=== PATIENT | female | born 1925 | race Caucasian/White ===

== ENCOUNTER 2016-11-02 14:29 | Inpatient (IN) | payer MEDICARE, BC ==
[~2016-11-02] VITALS: Ht 157.5 cm; Wt 114.8 kg
[~2016-11-02 14:29] MED LIST: ACET-868 PO; ASCO500C16 PO; ASPI-991 PO; CALA177S TP; CARV12.5 PO; CLOB15OI17 TP; CLOT15CR5 TP; CRAN237L PO; DOCU-270 PO; LACT1CAP72 PO; LEVO88TA PO; LORA10TA7 PO; MAG30ORA PO; MUPI22OI7; OLAN5TAB6 PO; SODI45SP6 NS; ZOLP5TAB7 PO
[2016-11-02 15:31] LABS: BASOPHILS # (AUTO) 0.1 /CMM (0.0-0.2); EOSINOPHILS # (AUTO) 0.3 /CMM (0.0-0.7); HEMOGLOBIN 15.3 g/dL (11.5-14.8); MEAN CORPUSCULAR HEMOGLOBIN 30 PG (26.0-33.0); MONOCYTES # (AUTO) 0.5 /CMM (0.1-1.30); NEUTROPHILS # (AUTO) 2.5 /CMM (1.8-8.9); RDW COEFFICIENT OF VARIATION 14.4 (11.5-15.0)
[2016-11-02 15:33] LABS: BASOPHILS % (AUTO) 1.3 % (0.0-2.0); HEMATOCRIT 46 % (33-45); LYMPHOCYTES % (AUTO) 48.3 % (20.0-44.0); MEAN CORPUSCULAR HGB CONC 34 g/dl (31.0-36.0); MEAN CORPUSCULAR VOLUME 90 fL (82-100); NEUTROPHILS % (AUTO) 38.4 % (43.0-81.0); PLATELET COUNT (AUTO) 240 /CMM (150-450); RED BLOOD CELL COUNT(AUTO) 5.06 MIL/uL (4.0-5.2); WHITE BLOOD COUNT (AUTO) 6.4 K/uL (4.3-11.0)
[2016-11-02 15:38] LABS: CALCIUM, SERUM 8.9 mg/dL (8.5-10.1); CARBON DIOXIDE 25 mmol/L (21-32); CHLORIDE 106 mmol/L (98-107); CREATININE 1.3 mg/dL (0.6-1.3); GLUCOSE 110 mg/dL (74-106); POTASSIUM 5.4 mmol/L (3.5-5.1); SODIUM SERUM 137 mmol/L (136-145); UREA NITROGEN, BLOOD 23 mg/dL (7-18)
--- NOTE | 2016-11-02 16:42 | NUR ---
REPORT GIVEN TO BECK MESSER IN CHARGE; WILL BE ADMITTED UNDER THE SERVICE OF DR. MARTIN AND DR. BRICENO.
[2016-11-02] MEDS ORDERED: SIMV20TA6 PO (17:20)
[2016-11-02] MEDS ORDERED: LACT1CAP89 PO (17:20)
[2016-11-02] MEDS ORDERED: LEVO100T9 PO (17:20)
[2016-11-02] MEDS ORDERED: MAG HYDROX/AL HYDROX/SIMETH 30 ML UDC PO PRN (18:00)
[2016-11-02] MEDS ORDERED: LORAZEPAM 0.5 MG TABLET PO PRN (18:00)
[2016-11-02] MEDS ORDERED: SODIUM POLYSTYRENE SULFONATE 15 G/60 ML BOTTLE PO ONE (18:00)
[2016-11-02] MEDS ORDERED: MAGNESIUM HYDROXIDE 30 ML UDC PO PRN (18:00)
[2016-11-02] MEDS ORDERED: SALINE NASAL SPRAY 0.65% 1 BOTTLE BOTTLE NS PRN (18:00)
[2016-11-02] MEDS ORDERED: ZOLPIDEM TARTRATE 5 MG TABLET PO PRN (18:00)
[2016-11-02] MEDS ORDERED: ACETAMINOPHEN 325 MG TABLET PO PRN ×2 (18:00)
[2016-11-02] MEDS ORDERED: DOCUSATE SODIUM 100 MG CAPSULE PO PRN (18:00)
--- NOTE | 2016-11-02 18:18 | NUR ---
RN-CO: Made a follow up on the Kayexalete 30 mg. Pharmacist said they will bring it in.
[2016-11-02 19:30] VITALS: BP 150/79
--- NOTE | 2016-11-02 19:30 | NUR ---
GPS ADMISSION NOTE, RECEIVED PATIENT FROM [facility]. PATIENT ARRIVED ON THIS UNIT AT 1800 [facility] BED WITH 1 EMERGENCY MEDICAL SERVICES COORDINATOR ESCORT. PATIENT ADMITTED ON VOLUNTARY STATUS. PATIENT STATES, " I HAVE JUST BEEN REALLY DEPRESSED BECAUSE I CAN'T WALK ANYMORE AND DR EVANS SAID I SHOULD BE EVALUATED ". UPON FACE TO FACE ASSESSMENT PATIENT IS CURRENTLY LYING IN BED AWAKE, HAS NO S/S OR COMPLAINTS OF PAIN. PATIENT IS DISPLAYING NO S/S OF APPARENT DISTRESS. PATIENT BREATHING IS UNLABORED WITH EQUAL RISE AND FALL OF THE CHEST. PATIENT IS ALERT AND ORIENTATED X 4 ON ROOM AIR. PATIENT ASSISTED WITH TURING AND REPOSITIONING Q2HR AND PRN FOR COMFORT AND CIRCULATION. PATIENT HAS NO NEEDS AT THIS TIME. PATIENT IS NOTED TO BEING DEPRESSED, DISHEVELED, DISORGANIZED, COOPERATIVE, AND NEEDS LITTLE REDIRECTION. PATIENT DENIES SUICIDE IDEATIONS AND HOMICIDAL IDEATIONS AT THIS TIME. PATIENT IS UNDER THE PSYCHIATRIC CARE OF DR. MARTIN AND THE MEDICAL CARE OF DR JANAK COKER. PATIENT BELONGINGS WERE INVENTORIED AND CHECKED FOR CONTRABAND. ALL CONTRABAND REMOVED AND STORED IN PATIENT HALLWAY LOCKER. PATIENT ADVANCED DIRECTIVES PREFERENCE, IMMUNIZATIONS QUESTIONER, NECESSARY PAPERWORK, SKIN ASSESSMENT COMPLETED, AND SIGNED. PATIENT ORIENTATED TO ROOM, FLOOR, AND STAFF WITH ALL QUESTIONS ANSWERED. PATIENT EDUCATED ON THE USE OF THE CALL ADAM. PATIENT BED SIDE RAILS ARE UP X 2 FOR SAFETY. PATIENT BED IS LOCKED, LOW, AND I WILL CONTINUE TO MONITOR THIS PATIENT Q 15 MIN WITH THE HELP OF STAFF TO MAINTAIN SAFETY.
[2016-11-02 21:00] VITALS: BP 150/79
[2016-11-02] MEDS: SIMVASTATIN 20 MG TABLET PO SCH (21:41)
[2016-11-02] MEDS: CARVEDILOL 12.5 MG TABLET PO SCH (21:41)
[2016-11-03] MEDS ORDERED: Z GUARD REMEDY 4 OZ OINT TP PRN (04:00)
[2016-11-03] MEDS: LEVOTHYROXINE SODIUM 100 MCG TABLET PO SCH (06:43)
[2016-11-03 07:33] LABS: CHOLESTEROL 159 mg/dL (<200); HDL CHOLESTEROL 40 mg/dL (40-60); LDL 91 mg/dL (0-99); TRIGLYCERIDES 142 mg/dL (30-150)
[2016-11-03 07:37] LABS: ALANINE AMINOTRANSFERASE 43 U/L (12-78); ALBUMIN 3.1 g/dL (3.4-5.0); ALKALINE PHOSPHATASE 79 U/L (46-116); ASPARTATE AMINOTRANSFERASE 29 U/L (15-37); CALCIUM, SERUM 8.7 mg/dL (8.5-10.1); CARBON DIOXIDE 27 mmol/L (21-32); CHLORIDE 105 mmol/L (98-107); CREATININE 1.1 mg/dL (0.6-1.3); GLUCOSE 101 mg/dL (74-106); POTASSIUM 3.4 mmol/L (3.5-5.1); SODIUM SERUM 142 mmol/L (136-145); TOTAL PROTEIN, SERUM 6.6 g/dL (6.4-8.2); UREA NITROGEN, BLOOD 20 mg/dL (7-18)
--- NOTE | 2016-11-03 07:40 | NUR ---
received pt. alert and oriented x4,cooperative,pleasant.vs stable.
[2016-11-03 08:00] VITALS: BP 134/67
[2016-11-03] MEDS: CARVEDILOL 12.5 MG TABLET PO SCH ×2 (10:55→21:25)
[2016-11-03] MEDS: ASPIRIN EC 81 MG TABLET.DR PO SCH (10:55)
--- NOTE | 2016-11-03 12:00 | NUR ---
radiology called regarding duplex study lower extremities.
[2016-11-03] MEDS ORDERED: POTASSIUM CHLORIDE 20 MEQ TAB.PRT.SR PO SCH (12:30)
[2016-11-03] MEDS: ESCITALOPRAM OXALATE (10 MG) 10 MG TABLET PO SCH (13:03)
--- NOTE | 2016-11-03 15:30 | NUR ---
obtained ua and urine culture by straight cath.pt. tolerated well.
[2016-11-03 16:00] VITALS: BP 125/64
[2016-11-03 16:23] LABS: APPEARANCE,URINE SL CLOUDY (CLEAR); BILIRUBIN,URINE NEGATIVE (NEGATIVE); BLOOD, URINE 1+ Ery/uL (NEGATIVE); COLOR,URINE YELLOW (YELLOW); KETONES,URINE NEGATIVE (NEGATIVE); LEUKOCYTE ESTERASE ,URINE 3+ (NEGATIVE); NITRITE, URINE POSITIVE (NEGATIVE); PROTEIN,URINE NEGATIVE (NEGATIVE); UGLUCOSE NEGATIVE (NEGATIVE); UROBILINOGEN,URINE 0.2 EU/dL (0.2)
[2016-11-03 16:42] LABS: BACTERIA,URINE Many /HPF (None Seen); SQUAMOUS EPITHELIAL CELL,UR Few /HPF (None Seen); WBC,URINE 21-50 /HPF (0-3)
--- NOTE | 2016-11-03 18:00 | NUR ---
awaiting results of duplex on legs-tech to do study today.
[2016-11-03 20:26] VITALS: BP 110/62
[2016-11-03] MEDS: SIMVASTATIN 20 MG TABLET PO SCH (21:25)
--- NOTE | 2016-11-03 22:30 | NUR ---
DR. MAN HERE WITH VERBAL NEW ORDERS GIVEN BMP FOR AM LABS FOR 11/04/16, NEW ORDERS RECEIVED AND CARRIED OUT.
--- NOTE | 2016-11-03 23:10 | NUR ---
DONOVAN GARCIA HERE IN UNIT. NOTIFIED DR. MAN ABOUT PT. URINE RBC-3.5, WBC-2150 , DR. MAN STATED I WILL LOOK AT THE PT. CHART
--- NOTE | 2016-11-04 06:08 | NUR ---
AT 0608 / CALLED DR. SHANNA PAYNE REGARDING ABOUT CONSULT, AND LEFT MESSAGE AT THIS PH# [phone] ENDORSE TO NEXT SHIFT FOR FOLLOW UP .
[2016-11-04 07:15] LABS: CALCIUM, SERUM 8.6 mg/dL (8.5-10.1); CARBON DIOXIDE 28 mmol/L (21-32); CHLORIDE 106 mmol/L (98-107); GLUCOSE 94 mg/dL (74-106); POTASSIUM 3.5 mmol/L (3.5-5.1); SODIUM SERUM 142 mmol/L (136-145); UREA NITROGEN, BLOOD 20 mg/dL (7-18)
[2016-11-04 08:08] VITALS: BP 137/71
[2016-11-04] MEDS: LEVOTHYROXINE SODIUM 100 MCG TABLET PO SCH (08:11)
[2016-11-04] MEDS: CARVEDILOL 12.5 MG TABLET PO SCH ×2 (08:11→22:02)
[2016-11-04] MEDS: ASPIRIN EC 81 MG TABLET.DR PO SCH (08:12)
[2016-11-04] MEDS: ESCITALOPRAM OXALATE (10 MG) 10 MG TABLET PO SCH (08:12)
[2016-11-04] MEDS: SULFAMETH/TRIMETH 800/160 MG 1 UDTAB TABLET PO SCH ×2 (08:39→22:02)
[2016-11-04 15:41] VITALS: BP 127/67
--- NOTE | 2016-11-04 15:51 | NUR ---
Initial discharge plan: Pt. is a resident at [address] [place] [address] and wants to return. SW will follow up with facility and if accepted back pt. can return. SW will help form safe and proper discharge. SW will follow up with family.
[2016-11-04 20:00] VITALS: BP 122/67
[2016-11-04] MEDS: Z GUARD REMEDY 2 OZ OINT TP SCH (21:00)
[2016-11-04] MEDS: SIMVASTATIN 20 MG TABLET PO SCH (22:03)
--- NOTE | 2016-11-05 06:13 | NUR ---
GPS/RN PATIENT AWAKE, ALERT, ORIENTED, NO BEHAVIOR PROBLEM OVERNIGHT. ALL NEEDS ATTENDED AT THIS TIME. WILL CONTINUE TO MONITOR.
[2016-11-05 08:13] VITALS: BP 131/61
[2016-11-05] MEDS: ASPIRIN EC 81 MG TABLET.DR PO SCH (09:22)
[2016-11-05] MEDS: LEVOTHYROXINE SODIUM 100 MCG TABLET PO SCH (09:22)
[2016-11-05] MEDS: CARVEDILOL 12.5 MG TABLET PO SCH ×2 (09:22→21:00)
[2016-11-05] MEDS: SULFAMETH/TRIMETH 800/160 MG 1 UDTAB TABLET PO SCH ×2 (09:22→21:14)
[2016-11-05] MEDS: ESCITALOPRAM OXALATE (10 MG) 10 MG TABLET PO SCH (09:22)
[2016-11-05] MEDS: Z GUARD REMEDY 2 OZ OINT TP SCH ×2 (09:29→21:00)
--- NOTE | 2016-11-05 14:34 | NUR ---
SW spoke with Tanner from [facility] [address], [place] [address] and pt is able to readmit after discharge.
[2016-11-05 15:30] VITALS: BP 132/66
[2016-11-05 20:00] VITALS: BP 118/60
--- NOTE | 2016-11-05 20:03 | NUR ---
RN NOTES RECEIVED PX AWAKE AND IN BED, NO S/SX OR COMPLAINTS OF PAIN AT THIS TIME. PX IS DISPLAYING NO S/SX OF APPARENT DISTRESS AT THIS TIME. PATIENT BREATHING IS UNLABORED WITH EQUAL RISE AND FALL OF THE CHEST. PATIENT IS ALERT AND ORIENTED X 4, ON ROOM AIR WITH SPO2 98%. PATIENT IS MED COMPLIANT. PATIENT DENIES SUICIDE IDEATIONS OR HOMICIDAL IDEATIONS AT THIS TIME. PATIENT ASSISTED WITH TURNING AND REPOSITIONING Q2 HR AND PRN FOR COMFORT AND CIRCULATION. PATIENT HAS NO NEEDS AT THIS TIME. PATIENT EDUCATED ON THE USE OF THE CALL ADAM. PATIENT BED SIDE RAILS UP X 2 FOR SAFETY, BED IS LOCKED AND LOW AND WILL CONTINUE TO MONITOR AND MAINTAIN SAFETY.
[2016-11-05] MEDS: SIMVASTATIN 20 MG TABLET PO SCH (21:13)
[2016-11-05] MEDS ORDERED: LEVOFLOXACIN (750 MG) 750 MG TABLET ONE (23:06)
[2016-11-05] MEDS: LEVOFLOXACIN (750 MG) 750 MG TABLET PO SCH (23:10)
--- NOTE | 2016-11-06 | NUR ---
RN NOTES DENIED PAIN, SOB, N/V; REFUSED SLEEPING PILL; DENIED DEPRESSION OR ANXIETY; CALLED DR. MAN AND MADE HIM AWARE OF URINE C/S RESULT,NEW ORDER MADE, SWITCHED BACTRIM TO LEVAQUIN, LEVAQUIN GIVEN TO PX PO.
--- NOTE | 2016-11-06 06:49 | NUR ---
RN NOTES TRANSFERRED PX TO ROOM 216-1, ON CONTACT ISOLATION; EARLY AM CARE RENDERED, CHANGED DIAPER, NO NEW SKIN CHANGES; DENIED PAIN, SOB, N/V; CALL ADAM WITHIN REACH; WILL ENDORSE TO NEXT RN.
[2016-11-06] MEDS: LEVOTHYROXINE SODIUM 100 MCG TABLET PO SCH (07:54)
[2016-11-06 08:00] VITALS: BP 144/73
[2016-11-06] MEDS: ESCITALOPRAM OXALATE (10 MG) 10 MG TABLET PO SCH (09:12)
[2016-11-06] MEDS: ASPIRIN EC 81 MG TABLET.DR PO SCH (09:12)
[2016-11-06] MEDS: CARVEDILOL 12.5 MG TABLET PO SCH ×2 (09:14→21:00)
[2016-11-06] MEDS: Z GUARD REMEDY 2 OZ OINT TP SCH ×2 (09:16→20:39)
[2016-11-06 15:58] VITALS: BP 119/67
[2016-11-06 20:00] VITALS: BP 118/63
[2016-11-06 20:45] VITALS: BP 118/67
[2016-11-06] MEDS: SIMVASTATIN 20 MG TABLET PO SCH (21:08)
--- NOTE | 2016-11-06 21:09 | NUR ---
AT 2100 PT. REFUSED CARVEDILOL 12.5, BP 118/67 , PULSE 68
[2016-11-06] MEDS: LEVOFLOXACIN (750 MG) 750 MG TABLET PO SCH (22:44)
[2016-11-07] MEDS: LEVOTHYROXINE SODIUM 100 MCG TABLET PO SCH (07:45)
[2016-11-07 08:09] VITALS: BP 135/90
[2016-11-07] MEDS: CARVEDILOL 12.5 MG TABLET PO SCH ×2 (08:57→21:00)
[2016-11-07] MEDS: ESCITALOPRAM OXALATE (10 MG) 10 MG TABLET PO SCH (08:57)
[2016-11-07] MEDS: ASPIRIN EC 81 MG TABLET.DR PO SCH (08:58)
[2016-11-07] MEDS: Z GUARD REMEDY 2 OZ OINT TP SCH ×2 (09:07→21:52)
[2016-11-07 16:00] VITALS: BP 124/74
[2016-11-07 20:00] VITALS: BP 128/74
--- NOTE | 2016-11-07 20:00 | NUR ---
RN INITIAL NOTE; PT ON THE BED RESTING WITHOUT ANY DISTRESS . ALERT/ ORIENTED X 4 , BREATHING EVEN AND UNLABORED . DENIED ANY PAIN AT THIS TIME. BED IN THE LOWEST/LOCKED POSITION . SAFETY MEASURES APPLIED. WILL TURN AND REPOSITION , WILL CONTINUE TO MONITOR .
[2016-11-07 20:19] VITALS: BP 128/74
[2016-11-07] MEDS: SIMVASTATIN 20 MG TABLET PO SCH (21:45)
[2016-11-07] MEDS: LEVOFLOXACIN (750 MG) 750 MG TABLET PO SCH (22:47)
--- NOTE | 2016-11-08 06:58 | NUR ---
RN EOS NOTE; NO ANY CHANGE OF CONDITION NOTED DURING THE SHIFT . WILL ENDORSE THE NEXT SHIFT RN FOR CONTINUITY OF CARE .
[2016-11-08 08:00] VITALS: BP 140/63
[2016-11-08] MEDS: LEVOTHYROXINE SODIUM 100 MCG TABLET PO SCH ×2 (08:22→08:25)
[2016-11-08] MEDS: CARVEDILOL 12.5 MG TABLET PO SCH ×2 (08:22→21:46)
[2016-11-08] MEDS: ASPIRIN EC 81 MG TABLET.DR PO SCH (08:22)
[2016-11-08] MEDS: ESCITALOPRAM OXALATE (10 MG) 10 MG TABLET PO SCH (08:22)
[2016-11-08] MEDS: Z GUARD REMEDY 2 OZ OINT TP SCH ×2 (08:23→21:48)
[2016-11-08 09:00] VITALS: BP 140/63
[2016-11-08 16:00] VITALS: BP 136/63
[2016-11-08 20:00] VITALS: BP 128/67
[2016-11-08] MEDS: SIMVASTATIN 20 MG TABLET PO SCH (21:45)
[2016-11-08] MEDS: LEVOFLOXACIN (750 MG) 750 MG TABLET PO SCH (23:24)
[2016-11-09] MEDS: LEVOTHYROXINE SODIUM 100 MCG TABLET PO SCH (07:30)
[2016-11-09 08:00] VITALS: BP 143/71
[2016-11-09] MEDS: ESCITALOPRAM OXALATE (10 MG) 10 MG TABLET PO SCH (09:09)
[2016-11-09] MEDS: ASPIRIN EC 81 MG TABLET.DR PO SCH (09:09)
[2016-11-09 09:10] VITALS: BP 143/71
[2016-11-09] MEDS: CARVEDILOL 12.5 MG TABLET PO SCH (09:10)
[2016-11-09] MEDS: Z GUARD REMEDY 2 OZ OINT TP SCH (09:16)
--- NOTE | 2016-11-09 13:30 | NUR ---
CAREERS ADVISER NOTE:PATIENT ALERT ,VERBALLY RESPONSIVE ,DENIES SI/HI/AVH.PATIENT SEEN BY WITH DISCHARGE ORDERS ,ALL ORDERS CARRIED OUT .. CALLED BACK WITH DISCHARGE ORDERS ALL ORDERS CARRIED OUT.ALL BELONGINGS RETURNED TO PATIENT .VS STABLE .REPORT GIVEN TO NURSE IN [facility] .PATIENT REFUSED DISCHARGE PHOTOS .PATIENT DISCHARGE WITH AMBULANCE.
--- NOTE | 2016-11-09 16:05 | NUR ---
Discharge note: discharged back to [facility] [address], [place], [place] [id number] via [facility]. Pt. was calm and cooperative and agreed with the discharge plan. Denied suicidal/homicidal ideations. Discharge information was provided to the accepting facility and discharge paperwork has been signed.
== END 2016-11-09 15:01 | DRG 881 ==
LOC: ER 14:31 → GPS 16:53
PROVIDERS: ADMIT Psychiatry & Neurology Psychiatry; ATTEND Psychiatry & Neurology Psychiatry
DX: F32.9 Major depressive disorder, single episode, unspecified (principal); N39.0 Urinary tract infection, site not specified; Z68.42 Body mass index [BMI] 45.0-49.9, adult; E03.9 Hypothyroidism, unspecified; E86.0 Dehydration; E78.5 Hyperlipidemia, unspecified; E66.01 Morbid (severe) obesity due to excess calories; K21.9 Gastro-esophageal reflux disease without esophagitis; K59.00 Constipation, unspecified; E87.5 Hyperkalemia; I89.0 Lymphedema, not elsewhere classified; Z90.710 Acquired absence of both cervix and uterus; Z79.82 Long term (current) use of aspirin; Z79.899 Other long term (current) drug therapy; Z81.8 Family history of other mental and behavioral disorders; B96.89 Other specified bacterial agents as the cause of diseases classified elsewhere
CPT/HCPCS: 36415; 71010-TC; 80048-TC; 80053-TC; 80061-TC; 81000-TC; 85025-TC; 87086-TC; 87186-TC; 93970-TC; 97001-TC; A4606; Z7610